=== PATIENT | male | born 1995 | race Caucasian/White ===

== ENCOUNTER 2017-04-04 20:48 | Emergency (ER) | payer MEDICAID ==
[~2017-04-04] VITALS: Ht 180.3 cm; Wt 97.5 kg
[~2017-04-04 20:48] MED LIST: VISTARIL25 MG PO
[2017-04-04] MEDS ORDERED: KEFLEX 500MG.500 MG PO (21:18)
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
[2017-04-04 21:21] VITALS: BP 149/95
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
--- OUTSIDE RECORDS SUMMARY | 2017-04-05 20:27 | External Medical Summary Rpt ---
Author Author NAEL Kessler, [employer]EL [employer] Organization [employer] Address Unknown Phone Unavailable Results Lipase Observa Value Referen Units Interpr Notes Date tion ce etation Range Lipase 15 13 - 60 IU/L No No Feb 10 Lvl informa informa 2015 tion in tion in 9:58 PM source source data data Alc-Med Observa Value Referen Units Interpr Notes Date tion ce etation Range Alcohol 69 <=10 mg/dL High No Feb 10 informa 2015 Medical tion in 9:52 PM source data Auto Diff Observa Value Referen Units Interpr Notes Date tion ce etation Range Neutrop 57.2 No % No No Feb 10 hils informa informa informa 2014 [#/volu tion in tion in tion in 9:36 PM me] in source source source Blood data data data by Automat ed count Lymphoc 32.9 No % No No Feb 10 ytes informa informa informa 2014 [#/volu tion in tion in tion in 9:36 PM me] in source source source Blood data data data by Automat ed count Monocyt 8.4 No % No No Feb 10 es informa informa informa 2014 [#/volu tion in tion in tion in 9:36 PM me] in source source source Blood data data data by Automat ed count Eos 0.8 No % No No Feb 10 Percent informa informa informa 2014 tion in tion in tion in 9:36 PM source source source data data data Baso 0.7 No % No No Feb 10 Percent informa informa informa 2015 tion in tion in tion in 9:36 PM source source source data data data Neut# 5.3 1.8 - x10(3)/ No No Feb 10 7.7 mcL informa informa 2015 tion in tion in 9:36 PM source source data data Lymph# 3.1 0.6 - x10(3)/ No No Feb 10 4.8 mcL informa informa 2015 tion in tion in 9:36 PM source source data data Pitt# 0.8 0.0 - x10(3)/ No No Feb 10 1.3 mcL informa informa 2015 tion in tion in 9:36 PM source source data data Eos# 0.1 0.0 - x10(3)/ No No Feb 10 0.5 mcL informa informa 2015 tion in tion in 9:36 PM source source data data Baso# 0.1 0.0 - x10(3)/ No No Feb 10 0.2 mcL informa informa 2015 tion in tion in 9:36 PM source source data data CBC Observa Value Referen Units Interpr Notes Date tion ce etation Range LEUKOCY 9.3 4.0 - x10(3)/ No No Feb 10 VIJAYA 11.0 mcL informa informa 2014 tion in tion in 9:36 PM source source data data Erythro 5.12 4.30 - x10(6)/ No No Feb 10 cytes 5.81 mcL informa informa 2014 [#/volu tion in tion in 9:36 PM me] in source source Blood data data by Automat ed count Hemoglo 14.6 13.5 - gm/dL No No Feb 10 bin 17.1 informa informa 2014 [Mass/v tion in tion in 9:36 PM olume] source source in data data Blood Hematoc 43.0 38.9 - % No No Feb 10 rit 51.6 informa informa 2014 [Volume tion in tion in 9:36 PM source source Fractio data data n] of Blood by Automat ed count Erythro 84.0 82.5 - fL No No Feb 10 cyte 99.8 informa informa 2015 mean tion in tion in 9:36 PM corpusc source source ular data data volume [Entiti c volume] by Automat ed count Erythro 28.5 27.0 - pg No No Feb 10 cyte 34.3 informa informa 2015 mean tion in tion in 9:36 PM corpusc source source ular data data hemoglo bin [Entiti c mass] by Automat ed count Erythro 33.9 32.1 - gm/dL No No Oct 09 cyte 35.3 informa informa 2014 mean tion in tion in 9:36 PM corpusc source source ular data data hemoglo bin concent ration [Mass/v olume] by Automat ed count Erythro 14.0 11.5 - % No No Oct 09 cyte 15.0 informa informa 2014 distrib tion in tion in 9:36 PM ution source source width data data [Ratio] by Automat ed count Platele 224 144 - x10(3)/ No No Oct 09 ts 423 mcL informa informa 2014 [#/volu tion in tion in 9:36 PM me] in source source Blood data data by Automat ed count MPV 8.8 6.8 - fL No No Oct 09 10.8 informa informa 2014 tion in tion in 9:36 PM source source data data EK EKG 12 LEAD Observa Value Referen Units Interpr Notes Date etation Range Sinus No No No No Jun 4 rhythm\ informa informa informa informa 2014 .br\\.b tion in tion in tion in tion in 8:30 PM r\Rosemarie source source source source l ECG data data data data XR CHEST PA AND LATERAL Observa Value Referen Units Interpr Notes Date ce etation Range Two-vie No No No No Jun 4 w chest informa informa informa informa 2013 date tion in tion in tion in tion in 8:21 PM 07/03/20 source source source source 14 time data data data data 2017\.b r\\.br\ History shortne ss of breath. \.br\\. br\FIND INGS: The cardiop ericard ial silhoue tte, mediast inum and vascula ture\.b r\are within normal\ .br\mcknight its. The lungs are clear.\ .br\\.b r\\.br\ IMPRESS ION: Normal 2 view chest. Amylase Observa Value Referen Units Interpr Notes Date ti ce etation Range AMYLASE 41 28 - IU/L No No Nov 4 .TOTAL 100 informa informa 2013 tion in in 9:00 PM source source data data Lipase Observa Value Referen Units Interpr Notes Date ti ce etation Range Lipase 16 13 - 60 IU/L No No Jun 4 Lvl informa informa 2014 tion in tion in 9:00 PM source source data data Alc-Med Observa Value Referen Units Interpr Notes Date tion ce etation Range Alcohol 10 <=10 mg/dL No No Jun 4 informa informa 2014 Medical tion in tion in 9:00 PM source source data data CBC Observa Value Referen Units Interpr Notes Date tion ce etation Range LEUKOCY 11.0 4.0 - x10(3)/ No No Jun 4 VIJAYA 11.0 mcL informa informa 2014 tion in tion in 8:45 PM source source data data Erythro 4.95 4.30 - x10(6)/ No No Jun 4 cytes 5.81 mcL informa informa 2013 [#/volu tion in tion in 8:45 PM me] in source source Blood data data by Automat ed count Hemoglo 14.5 13.5 - gm/dL No No Jul 03 bin 17.1 informa informa 2013 [Mass/v tion in tion in 8:45 PM olume] source source in data data Blood Hematoc 42.0 38.9 - % No No Jul 03 rit 51.6 informa informa 2013 [Volume tion in tion in 8:45 PM source source Fractio data data n] of Blood by Automat ed count Erythro 84.9 82.5 - fL No No Jun 4 cyte 99.8 informa informa 2014 mean tion in tion in 8:45 PM corpusc source source ular data data volume [Entiti c volume] by Automat ed count Erythro 29.3 27.0 - pg No No Jun 4 cyte 34.3 informa informa 2014 mean tion in tion in 8:45 PM corpusc source source ular data data hemoglo bin [Entiti c mass] by Automat ed count Erythro 34.6 32.1 - gm/dL No No Jun 4 cyte 35.3 informa informa 2014 mean tion in tion in 8:45 PM corpusc source source ular data data hemoglo bin concent ration [Mass/v olume] by Automat ed count Erythro 13.2 11.5 - % No No Jun 4 cyte 15.0 informa informa 2014 distrib tion in tion in 8:45 PM ution source source width data data [Ratio] by Automat ed count Platele 246 144 - x10(3)/ No No Nov 4 ts 423 mcL informa informa 2013 [#/volu tion in tion in 8:45 PM me] in source source Blood data data by Automat ed count MPV 9.4 6.8 - fL No No Nov 4 10.8 informa informa 2013 tion in tion in 8:45 PM source source data data Auto Diff Observa Value Referen Units Interpr Notes Date tion ce etation Range Neutrop 61.0 No % No No Nov 4 hils informa informa informa 2013 [#/volu tion in tion in tion in 8:45 PM me] in source source source Blood data data data by Automat ed count Lymphoc 27.3 No % No No Nov 4 ytes informa informa informa 2013 [#/volu tion in tion in tion in 8:45 PM me] in source source source Blood data data data by Automat ed count Monocyt 10.6 No % No No Nov 4 es informa informa informa 2013 [#/volu tion in tion in tion in 8:45 PM me] in source source source Blood data data data by Automat ed count Eos 0.6 No % No No Nov 4 Percent informa informa informa 2013 tion in tion in tion in 8:45 PM source source source data data data Baso 0.5 No % No No Nov 4 Percent informa informa informa 2013 tion in tion in tion in 8:45 PM source source source data data data Neut# 6.7 1.8 - x10(3)/ No No Nov 4 7.7 mcL informa informa 2014 tion in tion in 8:45 PM source source data data Lymph# 3.0 0.6 - x10(3)/ No No Nov 4 4.8 mcL informa informa 2014 tion in tion in 8:45 PM source source data data Pitt# 1.2 0.0 - x10(3)/ No No Nov 4 1.3 mcL informa informa 2014 tion in tion in 8:45 PM source source data data Eos# 0.1 0.0 - x10(3)/ No No Nov 4 0.5 mcL informa informa 2013 tion in tion in 8:45 PM source source data data Baso# 0.1 0.0 - x10(3)/ No No Nov 4 0.2 mcL informa informa 2013 tion in tion in 8:45 PM source source data data Auto Diff Observa Value Referen Units Interpr Notes Date tion ce etation Range Neutrop 51.8 No % No No Mar 18 hils informa informa informa 2012 [#/volu tion in tion in tion in 11:09 me] in source source source PM Blood data data data by Automat ed count Lymphoc 38.4 No % No No Mar 18 ytes informa informa informa 2012 [#/volu tion in tion in tion in 11:09 me] in source source source PM Blood data data data by Automat ed count Monocyt 8.5 No % No No Mar 18 es informa informa informa 2012 [#/volu tion in tion in tion in 11:09 me] in source source source PM Blood data data data by Automat ed count Eos 0.7 No % No No Aug 18 Percent informa informa informa 2012 tion in tion in tion in 11:09 source source source PM data data data Baso 0.6 No % No No Aug 18 Percent informa informa informa 2012 tion in tion in tion in 11:09 source source source PM data data data Neut# 4.9 1.8 - x10(3)/ No No Aug 18 7.7 mcL informa informa 2012 tion in tion in 11:09 source source PM data data Lymph# 3.6 0.6 - x10(3)/ No No Aug 18 4.8 mcL informa informa 2012 tion in tion in 11:09 source source PM data data Pitt# 0.8 0.0 - x10(3)/ No No Aug 18 1.3 mcL informa informa 2013 tion in tion in 11:09 source source PM data data Eos# 0.1 0.0 - x10(3)/ No No Aug 18 0.5 mcL informa informa 2012 tion in tion in 11:09 source source PM data data Baso# 0.1 0.0 - x10(3)/ No No Mar 18 0.2 mcL informa informa 2013 tion in tion in 11:09 source source PM data data CBC Observa Value Referen Units Interpr Notes Date tion ce etation Range LEUKOCY 9.5 4.0 - x10(3)/ No No Mar 18 VIJAYA 11.0 mcL informa informa 2013 tion in tion in 11:09 source source PM data data Erythro 5.45 4.30 - x10(6)/ No No Apr 16 cytes 5.81 mcL informa informa 2013 [#/volu tion in tion in 11:09 me] in source source PM Blood data data by Automat ed count Hemoglo 15.6 13.5 - gm/dL No No Apr 16 bin 17.1 informa informa 2013 [Mass/v tion in tion in 11:09 olume] source source PM in data data Blood Hematoc 47.6 38.9 - % No No Apr 16 rit 51.6 informa informa 2013 [Volume tion in tion in 11:09 source source PM Fractio data data n] of Blood by Automat ed count Erythro 87.4 82.5 - fL No No Apr 16 cyte 99.8 informa informa 2013 mean tion in tion in 11:09 corpusc source source PM ular data data volume [Entiti c volume] by Automat ed count Erythro 28.6 27.0 - pg No No Apr 16 cyte 34.3 informa informa 2013 mean tion in tion in 11:09 corpusc source source PM ular data data hemoglo bin [Entiti c mass] by Automat ed count Erythro 32.7 32.1 - gm/dL No No Apr 16 cyte 35.3 informa informa 2013 mean tion in tion in 11:09 corpusc source source PM ular data data hemoglo bin concent ration [Mass/v olume] by Automat ed count Erythro 13.5 11.5 - % No No Mar 18 cyte 15.0 informa informa 2013 distrib tion in tion in 11:09 ution source source PM width data data [Ratio] by Automat ed count Platele 243 144 - x10(3)/ No No Mar 18 ts 423 mcL informa informa 2013 [#/volu tion in tion in 11:09 me] in source source PM Blood data data by Automat ed count MPV 8.7 6.8 - fL No No Apr 16 10.8 informa informa 2013 tion in tion in 11:09 source source PM data data Alc-Med Observa Value Referen Units Interpr Notes Date ti ce etation Range Alcohol 263 0 - 9 mg/dL High No Apr 16 informa 2013 Medical tion in 11:22 source PM data EK EKG 12 LEAD Observa Value Referen Units Interpr Notes Date ti ce etation Range Sinus No No No No Apr 16 tachyca informa informa informa informa 2013 rdia\.b tion in tion in tion in tion in 10:43 r\\.br\ source source source source PM Normal data data data data ECG except for rate
--- OUTSIDE RECORDS SUMMARY | 2017-04-05 20:27 | External Medical Summary Rpt ---
Demographics Preferred Language Azeri Marital Status Unknown Church Affiliation Unknown Race Unknown Ethnic Group Unknown Author Author NAEL Address Unknown Phone Immunization No patient found.
--- OUTSIDE RECORDS SUMMARY | 2017-04-05 20:27 | External Medical Summary Rpt ---
Demographics Preferred Language Kinyarwanda Marital Status Unknown Spiritism Affiliation Unknown Race Unknown Ethnic Group Unknown Author Author NAEL Address Unknown Phone Immunization No patient found.
--- OUTSIDE RECORDS SUMMARY | 2017-04-05 20:27 | External Medical Summary Rpt ---
[...] in 9:36 PM source source data data [facility]# 0.8 0.0 - x10(3)/ No No Feb [...] in 8:45 PM source source data data [facility]# 1.2 0.0 - x10(3)/ No No Nov [...] in 11:09 source source PM data data [facility]# 0.8 0.0 - x10(3)/ No No Aug [...]
== END 2017-04-04 21:23 | disposition home or self-care (01) ==
LOC: ER 20:48
DX: H01.001 Unspecified blepharitis right upper eyelid (principal); H10.31 Unspecified acute conjunctivitis, right eye; Z72.0 Tobacco use